=== PATIENT | female | born 1970 | race Caucasian/White ===

== ENCOUNTER → 2024-07-22 17:25 | Outpatient (REF) | payer OTHER, SELFPAY | LOC: MRI 3T 17:25 | PROVIDERS: ATTENDING PHYSICIAN Surgery; FAMILY PHYSICIAN Nurse Practitioner | DX: N63.14 Unspecified lump in the right breast, lower inner quadrant (principal) | CPT/HCPCS: 77049; A9585 ==

== ENCOUNTER → 2024-08-11 16:53 | Outpatient (REF) | payer OTHER, SELFPAY | LOC: HWRAD 16:53 | PROVIDERS: ATTENDING PHYSICIAN Nurse Practitioner | DX: R82.998 Other abnormal findings in urine (principal) | CPT/HCPCS: 74018 ==

== ENCOUNTER → 2024-08-28 07:28 | Outpatient (REF) | payer OTHER, SELFPAY | LOC: WDC 07:28 | PROVIDERS: ATTENDING PHYSICIAN Nurse Practitioner | DX: K76.89 Other specified diseases of liver (principal); N64.59 Other signs and symptoms in breast; R92.8 Other abnormal and inconclusive findings on diagnostic imaging of breast | CPT/HCPCS: 76642; 76700; 77061; 77065 ==

== ENCOUNTER → 2024-09-01 16:13 | Outpatient (REF) | payer OTHER, SELFPAY | LOC: RCS 16:13 | PROVIDERS: ATTENDING PHYSICIAN Obstetrics & Gynecology; FAMILY PHYSICIAN Nurse Practitioner | DX: Z01.818 Encounter for other preprocedural examination (principal) | CPT/HCPCS: 93005 ==

== ENCOUNTER → 2025-02-26 13:58 | Outpatient (REF) | payer OTHER, SELFPAY | LOC: WDC 13:58 | PROVIDERS: ATTENDING PHYSICIAN Surgery; FAMILY PHYSICIAN Nurse Practitioner | DX: Z12.31 Encounter for screening mammogram for malignant neoplasm of breast (principal); R92.8 Other abnormal and inconclusive findings on diagnostic imaging of breast | CPT/HCPCS: 76642; 77063; 77067 ==